=== PATIENT | female | born 1975 | race Caucasian/White ===

== ENCOUNTER 2023-12-16 17:37 | Emergency (ER) | payer SELFPAY ==
[~2023-12-16] VITALS: Ht 172.7 cm; Wt 72.7 kg
[~2023-12-16 17:37] MED LIST: LISINOPRIL40 MG PO; METFORMIN HYD1000 M1 PO
[2023-12-16] MEDS ORDERED: fentaNYL 100 MCG/2 ML VIAL IV ONE (19:00)
[2023-12-16 19:12] LABS: HEMATOCRIT 29.8 % (37.0-47.0); HEMOGLOBIN 8.7 g/dL (12.5-16.0); LYMPH# 0.83 K/mm3 (1.50-4.00); MEAN CELL VOLUME 75 fl (78-100); MEAN CORPUSCULAR HEMOGLOBIN 22 pg (27-31); MEAN CORPUSCULAR HGB CONC 29 g/dL (33-37); MEAN PLATELET VOLUME 10.2 fl (7.4-10.4); MONO # 0.25 K/mm3 (0.20-0.80); NEU # 3.05 K/mm3 (1.40-6.50); PLATELET COUNT 193 K/mm3 (130-400); RED CELL DISTRIBUTION WIDTH 21.5 % (11.5-14.5); WHITE BLOOD COUNT 4.1 K/mm3 (4.8-10.8)
[2023-12-16 19:16] LABS: ALBUMIN 3.2 g/dL (3.5-5.0)
[2023-12-16 19:18] LABS: CALCIUM 8.9 mg/dL (8.3-10.5)
[2023-12-16 19:19] LABS: TOTAL PROTEIN 6.8 g/dL (6.4-8.3)
[2023-12-16 19:21] LABS: TOTAL BILIRUBIN 0.4 mg/dL (0.2-1.2)
[2023-12-16] MEDS ORDERED: Home HYDROcodone/Acetaminophen 5/325 MG #4 TABS/PACK PO ONE (20:30)
[2023-12-16] MEDS ORDERED: Morphine 4 MG/ML VIAL IV ONE (20:30)
[2023-12-16 21:00] VITALS: BP 164/92
== END 2023-12-16 21:00 | disposition home or self-care (01) ==
LOC: ED 17:37
PROVIDERS: Physician Assistant
DX: T81.40XA Infection following a procedure, unspecified, initial encounter (principal); L03.032 Cellulitis of left toe; L03.031 Cellulitis of right toe; Z89.422 Acquired absence of other left toe(s); Z89.421 Acquired absence of other right toe(s); Z91.040 Latex allergy status; Z88.1 Allergy status to other antibiotic agents
CPT/HCPCS: J2270; J3010